=== PATIENT | male | born 1970 | race Caucasian/White ===

== ENCOUNTER → 2017-09-10 | Outpatient (CLI) | payer OTHER ==
[2017-09-10 16:38] LABS: CSF PROTEIN 96 mg/dL (15-45)
[2017-09-10 16:43] LABS: GLUCOSE, CSF 61 mg/dL (40-80)
[2017-09-10 16:53] LABS: APPEARANCE CLEAR/COLORLESS; CSF TUBE NUMBER TUBE #3; RED CELL COUNT 1 /MM^3 (0-1); WHITE CELL COUNT 0 /MM^3 (0-5)
== END | disposition home or self-care (01) ==
LOC: RAD 14:44
PROVIDERS: Nurse Practitioner Primary Care
PROC: 009U3ZZ Drainage of Spinal Canal, Percutaneous Approach (ICD-10-PCS; principal; 2017-09-10)
DX: R51 Headache (principal)
CPT/HCPCS: 62270; 77002; 82945; 83873 90; 83916 90; 84157; 87070; 87205; 89051